=== PATIENT | male | born 1975 | race Caucasian/White ===

== ENCOUNTER 2018-07-12 14:16 | Outpatient (CLI) | payer BC ==
--- NOTE | 2018-07-13 14:18 | OP Clinic Progress Note ---
REASON FOR VISIT: This patient is seen alone. He is seen for a mass overlying the right side of his skull in the posterior lateral aspect. This would be consistent with an area just at or above the mastoid. It is about 2.5 cm. It is moveable. It is not painful. There is no drainage site. The patient is not able to contribute any history of any significance. Clinically, this would be a fair probability of being a lipoma. PLAN: At this point, I think an additional x-ray and an MRI would give us some reasonable probability as to if this is a lipoma or not. Alternatively, this mass could simply be excised on an outpatient basis. The patient to me seems as if he needs assistance in making sure that there is adequate understanding for his level of function. I have been clear about trying to ask him to bring his father with him or another family member. He states that there are other family members living in the area. cc: VIPUL Hurt MTDDelilah
== END 2018-07-12 14:18 ==
LOC: ENT 14:16
PROVIDERS: ATTEND Otolaryngology
DX: R22.0 Localized swelling, mass and lump, head (principal)
CPT/HCPCS: 99213

== ENCOUNTER 2018-08-21 11:46 | Day surgery (SDC) | payer BC ==
[~2018-08-21 11:46] MED LIST: MIDAZOLAM HCL 2 MG/2 ML VIAL IVP ONE; fentaNYL CITRATE/PF 100 MCG/ 2ML AMP IVP ONE
--- NOTE | 2018-08-21 12:49 | History and Physical Report ---
HISTORY OF PRESENT ILLNESS: This male born 1975, is here with a lump or a mass that has progressively gotten larger behind his right ear and nape of neck. Denies fever, chills, ear pain, sinus congestion or anything else associated with this. MRI does not show other cervical lymphadenopathy. There is not a bony erosion. It has not been tender. There has not been any drainage. He has taken antibiotics but it has not resolved. Patient is a little vague on exactly how long it has been noted. He occasionally has a small amount of aching but generally it is not painful. PAST MEDICAL HISTORY AND REVIEW OF SYSTEMS: ALLERGIES: None noted. MEDICATIONS: None noted. PHYSICAL EXAMINATION: General: An alert male. Head: Mass is ovoid at nape of neck on the right mastoid area. It is smooth but maybe about an inch in diameter. There is no erythema. There is no other gross cervical lymphadenopathy. Heart: Regular rhythm without murmurs, clicks, rubs, heaves, or thrills. Abdomen: Mesomorphic. Benign. Neurologic: Grossly intact. Extremities: Normal range of movement with no edema, clubbing, cyanosis, or deformity. Rectal: Deferred. IMPRESSION: Mass of right postauricular area overlying the occipitomastoid area on the right side in the very upper neck junction. Probably benign mass, fairly high probability of being a lipoma without exact knowledge. PLAN: He has the option of having no surgery or a needle biopsy has been offered but I would tend to excise this and the patient has agreed. I have asked him to communicate as best he can with his family in this regard. Plan is for excision with direct laryngoscopy. The postoperative care has been carefully gone over. Scar, need for additional medications and/or surgery, and I will be gone for 2 days over the weekend succeeding this, have been covered in addition. I believe there is good understanding. I have tried to be quite clear in regards to the head dressing that will be on it and pressure and bolsters have all been described. MTDD
[2018-08-21] MEDS ORDERED: PROPOFOL 200 MG/20 ML VIAL IV ONE (13:00)
[2018-08-21] MEDS ORDERED: ONDANSETRON HCL/PF 4 MG/ 2ML VIAL ONE (13:00)
[2018-08-21] MEDS ORDERED: DEXAMETHASONE SOD PHOS 4 MG/ML VIAL ONE (13:00)
[2018-08-21] MEDS ORDERED: LIDOCAINE 1%/EPINEPHRINE 20ML VIAL IJ ONE (13:00)
[2018-08-21] MEDS ORDERED: LIDOCAINE HCL/PF 2% 100 MG/5 ML VIAL IJ ONE (13:00)
[2018-08-21] MEDS ORDERED: LACTATED RINGERS 1,000 ML IV.SOLN IV ONE (13:00)
[2018-08-21] MEDS ORDERED: ceFAZolin SODIUM 1 GM VIAL ONE (13:00)
--- NOTE | 2018-08-22 14:34 | Operative Note ---
SURGEON: Richmond Agosto D.O. ANESTHESIA: General anesthetic by LMA. PREOPERATIVE DIAGNOSIS: Right mastoid nape of neck mass, probable lipoma. POSTOPERATIVE DIAGNOSIS: Right mastoid nape of neck mass, probable lipoma. PROCEDURE PERFORMED: Excision of right-sided neck/skull mass approximately 3 cm. INDICATIONS FOR PROCEDURE: This male born 1975, has a mass that progressively enlarged. There has been no drainage and essentially no pain unless he hits it. It is a soft nodular 2.5 cm to 3 cm. Risks, problems, complications were gone over 2 or 3 times with the patient. Scar, numbness, pain, reoccurrence, bleeding, and infection were some of the issues discussed. I also reviewed this with his father on the day of surgery. They chose to go ahead with the surgery under these conditions. I tried to review risks, problems, complications, being welcomed to additional opinions clearly, carefully, and repetitively with both of them. PROCEDURE IN DETAIL: The patient was taken to the operating room where he was given a general anesthetic by LMA. He was given a gram of Ancef. The wound area was shaved and prepped in a sterile fashion. The skin crease line incision was mapped out and injected with 1:100,000 epinephrine. The incision was made in that line and careful dissection was made. Loupe magnification was used. Just deep into the subcutaneous tissue, I began at the corners of the incision and began to progressively work around the mass which appeared to be a multi-lobulated lipoma. Again, I tried to excise the lipoma in total but preserve the cervical nerves and the fascia. Tedious dissection was carried out, again, trying to remove the entire lipoma with my fingers but not dig into the normal fascia and muscular tissue. The mass appeared to be removed in total. It was washed and cleaned with irrigation. A 5-0 chromic suture was used to tack down the deep layers to obliterate the space. Xeroform gauze was placed on top of this and 0- Prolene was used as a deep suture and then over the top creating a compressive dressing. The patient was awakened from his general anesthetic and extubated and taken to the recovery room in satisfactory condition. cc: VIPUL Hurt
== END 2018-08-21 11:47 ==
LOC: OPSURG 11:46
PROVIDERS: ATTEND Otolaryngology
DX: D48.5 Neoplasm of uncertain behavior of skin (principal); R22.1 Localized swelling, mass and lump, neck
CPT/HCPCS: 88304; J0690; J1100; J2001; J2405; J2704; J7120; 11423; 31525

== ENCOUNTER 2018-09-06 13:07 | Outpatient (CLI) | payer BC ==
--- NOTE | 2018-09-12 12:09 | OP Clinic Progress Note ---
REASON FOR VISIT: This 43-year-old man is seen in follow up from a removal of a lipoma from the right mastoid area that was done on August 21, 2018. It is healing well. The patient has zero complaints. The surgical site appears to be well healed. There is no evidence of infection or dehiscence. PLAN: Patient is discharged to his own recognizance. JIMMY
== END 2018-09-06 13:10 ==
LOC: ENT 13:07
PROVIDERS: ATTEND Otolaryngology
DX: D17.0 Benign lipomatous neoplasm of skin and subcutaneous tissue of head, face and neck (principal); Z48.01 Encounter for change or removal of surgical wound dressing
CPT/HCPCS: 99211